=== PATIENT | female | born 1940 | race Caucasian/White ===

== ENCOUNTER 2018-09-01 17:13 | Emergency (ER) | payer OTHER ==
--- OUTSIDE RECORDS SUMMARY | 2018-09-01 17:15 | XMS REPORT ---
:1940 [facility] Address [address] [place] [address] Care Team Providers Name Role Phone LOIDA DANIELLE Unavailable Unavailable Problems This patient has no known problems. Allergies, Adverse Reactions, Alerts This patient has no known allergies or adverse reactions. Medications This patient has no known medications. Results Test Description Test Time Test Comments Text Results Atomic Results Result Comments TSH/FREE T4 IF INDICATED 2017-01-26 15:41:00 Test Item Value Reference Range Comments THYROID STIMULATING HORMONE (BEAKER) (test dxdl=172) 1.00 uIU/mL 0.35-4.94 [id number] 14:01:00 Test Item Value Reference Range Comments ACTIVATED CLOTTING TIME 125 sec TESTED AT [facility] [address] ([employer]) (test auph=498) [place] [address] [id number] 12:28:00 Test Item Value Reference Range Comments ACTIVATED CLOTTING TIME 147 sec TESTED AT [facility] [address] ([employer]) (test vteh=777) [place] [address] PLATELET AGGREGATION: FUNCTION [id number] 10:49:00 Test Item Value Reference Range Comments WEAK ADP RESULT(BEAKER) (test 5 % 60-91 khyf=7700) PLATELET FUNCTION SCREEN 0-39% indicates marked platelet INTERP (BEAKER) (test dysfunction lvyf=5946) [id number] Rhoda Gardner MD (BEAKER) (test vakv=5671) (electronic signature) PLATELET COUNT AGG (BEAKER) 269 K/CU MM 150-430 (test suzx=6397) [id number] 08:56:00 Test Item Value Reference Range Comments ACTIVATED CLOTTING TIME 307 sec TESTED AT [facility] [address] ([employer]) (test koxy=102) [place] [address] [id number] 08:56:00 Test Item Value Reference Range Comments ACTIVATED CLOTTING TIME 230 sec [address] (test oort=672) [place] [address]
--- OUTSIDE RECORDS SUMMARY | 2018-09-01 17:15 | XMS REPORT | Clinical Summary ---
:1940 Author Organization [facility] Address [address] [place] [address] Care Team Providers Name Role Phone Jose Luis Hillman Primary Care Provider Unavailable Allergies Active Allergy Reactions Severity Noted Date Comments Adhesive 01/25/2017 To Certain Tapes -- Breaks Out Diphenhydramine Hcl Other (See Comments) 01/24/2017 Opposite reaction, no IV or oral keeps patient awake. Codeine 01/24/2017 Muscle wasting Erythromycin 01/24/2017 " no feelings" or any of the mycin, facial numbness Penicillins Hives, Rash Low 01/24/2017 Swelling, breaks out Medications Medication Sig Dispensed Refills Start Date End Date Status levothyroxine Take 75 mcg by 0 Active (SYNTHROID, LEVOTHROID) mouth Every 75 MCG tablet morning on an empty stomach. lisinopril Take 10 mg by 0 Active (PRINIVIL,ZESTRIL) 10 MG mouth 2 (two) tablet times daily. anastrozole (ARIMIDEX) 1 Take 1 mg by 0 Active mg tablet mouth daily. atorvastatin (LIPITOR) Take 20 mg by 0 Active 20 MG tablet mouth nightly. clopidogrel (PLAVIX) 75 Take 75 mg by 0 Active mg tablet mouth daily. cyanocobalamin (VITAMIN Take 1,000 mcg 0 Active B-12) 1000 MCG tablet by mouth daily. folic acid (FOLVITE) 800 Take 800 mcg by 0 Active MCG tablet mouth daily . coenzyme Q10 100 mg Take 100 mg by 0 Active capsule mouth daily. garlic 1,000 mg Cap Take by mouth 0 Active daily . KRILL/OM-3/DHA/EPA/PHOSP Take 1 capsule 0 Active HO/AST (MEGARED OMEGA-3 by mouth daily KRILL OIL ORAL) 300 mg PO Daily. docusate sodium (COLACE) Take 200 mg by 0 Active 100 MG capsule mouth daily. TURMERIC ROOT EXTRACT Take 500 mg by 0 Active ORAL mouth daily. ERGOCALCIFEROL, VITAMIN Take 50,000 0 Active D2, ORAL Units by mouth once a week. LACTOBACILLUS Take by mouth 2 0 Active ACIDOPHILUS (PROBIOTIC billion daily . ORAL) aspirin 81 MG EC tablet Take 1 tablet 90 tablet 3 01/26/2017 Active (81 mg total) by mouth daily. Active Problems Problem Noted Date Carotid artery stenosis 01/25/2017 Carotid artery stenosis, symptomatic, bilateral 01/24/2017 Breast cancer 01/24/2017 Acquired hypothyroidism 01/24/2017 S/P radiation therapy 01/24/2017 Social History Tobacco Use Types Packs/Day Years Used Date Never Smoker Alcohol Use Drinks/Week oz/Week Comments No none since july Sex Assigned at Date Recorded Not on file Job Start Date Occupation Industry Not on file Not on file Not on file Travel History Travel Start Travel End No recent travel history available. 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 Device Shelf Model / Identifier Expiration Serial / Date Lot [employer] Carotid Wallstent Stents-C Right: [place] 04/25/2020 [id number] / Implanted: Qty: 1 on 01/25/2017 by Cody Walker MD oronary Carotid SCIENTIFIC / Artery [id number] Results Not on fileafter 08/31/2017 Insurance Payer Benefit Plan / Subscriber ID Type Phone Address Group AETNA - MEDICARE AETNA MEDICARE O xxxxxxxx [phone] [address] [place] [id number] Advance Directives For more information, please contact:[place] [address] [address] Pandey [phone] Code Status Date Activated Date Inactivated Comments Full Code 01/25/2017 5:59 AM 01/26/2017 1:01 PM This code status was determined by: Patient
--- OUTSIDE RECORDS SUMMARY | 2018-09-01 17:15 | XMS REPORT | Summary of Care ---
:1940 Author Name Alanna Moreno Address Unavailable Unavailable , Care Team Providers Name Role Phone JUAN MOORE M.D. 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 Quantity: 8 Refills: 0 JUAN MOORE M.D. Start : 07-Sep-2016 Active Levothyroxine Sodium 75 MCG Oral Tablet Refills: 0 DIANA N.P., NATARSHA Start : 19-May-2018 Active Lisinopril-Hydrochlorothiazide 20-12.5 MG Oral Tablet Refills: 0 DIANA N.P., NATARSHA Start : 19-May-2018 Active Plavix 75 MG Oral Tablet Refills: 0 DIANA N.P., NATARSHA Start : 19-May-2018 Active Anastrozole 1 MG Oral Tablet Refills: 0 DIANA N.P., NATARSHA Start : 19-May-2018 Active Aspir-81 81 MG Oral Tablet Delayed Release Refills: 0 DIANA N.P., NATARSHA Start : 19-May-2018 Active Lipitor 20 MG Oral Tablet Refills: 0 DIANA N.P., NATARSHA Start : 19-May-2018 Active B-12 TR 1000 MCG Oral Tablet Extended Release Refills: 0 DIANA N.P., NATARSHA Start : 19-May-2018 Active Folic Acid 800 MCG Oral Tablet Refills: 0 DIANA N.P., NATARSHA Start : 19-May-2018 Active Turmeric Curcumin Oral Capsule Refills: 0 DIANA N.P., NATARSHA Start : 19-May-2018 Active Co Q 10 100 MG Oral Capsule Refills: 0 DIANA N.P., NATARSHA Start : 19-May-2018 Active Allergies and Adverse Reactions Name Dates Details codeine (Allergy) Status: Active Penicillins (Allergy) Status: Active tramadol (Allergy) Status: Active Past Medical History Name Dates Details History of hyperlipidemia (V12.29, Z86.39) Status: Resolved History of hypertension (V12.59, Z86.79) Status: Resolved History of hypothyroidism (V12.29, Z86.39) Status: Resolved Procedures Procedure Dates Details [U] XRAY FEMUR 2 VWS LEFT [id number] Date: 01-Sep-2018 History of Tonsillectomy Completed History of Cataract Surgery Completed Immunization Name Dates Details Immunizations not documented Family History Name Dates Details Family history of thyroid disease (V18.19, Z83.49) Comments: Family History Status: Active Social History Name Dates Details - Status: Name Dates Details Never smoker Vital Signs Date Test Result Details No Known Vitals to report Results Date Description Value Details Results not documented Plan of Care Name Dates Details Planned Observations Planned Goals not documented Planned Encounters Appointment; JUAN MOORE M.D. On: 12-Sep-2018 9:00 Interventions Provided Labs/Procedures/Imaging[U] XRAY FEMUR 2 VWS LEFT [id number]; To Be Done: 12 Sep 2018 Instructions Name Dates Details Instructions not documented Encounters Appointment; JUAN MOORE M.D. On: 07-Sep-2016 10:00 Encounter Diagnosis: Problem not documented Appointment; JUAN MOORE M.D. On: 09-Nov-2016 9:45 Encounter Diagnosis: Problem not documented Appointment; JUAN MOORE M.D. On: 08-Feb-2017 9:45 Encounter Diagnosis: Problem not documented Appointment; SHAHANA WILL P.A. On: 08-Feb-2017 9:45 Encounter Diagnosis: Problem not documented Appointment; JUAN MOORE M.D. On: 09-Aug-2017 9:00 Encounter Diagnosis: Problem not documented Appointment; JUAN MOORE M.D. On: 13-Sep-2017 9:00 Encounter Diagnosis: Problem not documented Appointment; Bhavana Singleton M.D. On: 10-May-2018 13:30 Encounter Diagnosis: Problem not documented Appointment; RADIOLOGY, PROVIDER On: 19-May-2018 9:00 Encounter Diagnosis: Problem not documented Appointment; JUAN MOORE M.D. On: 12-Sep-2018 9:00 Encounter Diagnosis: Problem not documented
[2018-09-01] MEDS ORDERED: cloNIDine HCl 0.1 MG TAB ONE (18:36)
[2018-09-01 18:49] LABS: Absolute Lymphocytes (CBC) 1.5 K/uL (0.7-4.9); Absolute Monocytes 0.6 K/uL (0.1-1.3); Absolute Neutrophil 5.2 K/uL (1.8-8.0); Basophils % 1.2 % (0-1.3); Eosinophils % 5.1 % (0-4.4); Hematocrit 27.1 % (36.0-45.0); Lymphocytes % 19.2 % (15.3-44.8); MPV 6.4 fL (7.6-11.3); Monocytes % 8.2 % (3.3-12.3); RBC Red Blood Cell Count 2.76 M/uL (3.86-4.86)
[2018-09-01 19:09] LABS: Potassium 4.2 mmol/L (3.5-5.1)
--- NOTE | 2018-09-01 19:52 | EDPHYS ---
Physician Documentation [facility] Name: Natacha Dhillon Age: 77 yrs Sex: Female : 1940 Arrival Date: 09/01/2018 Time: 17:17 Bed 25 Private MD: out of town, doctor ED Physician Dakota Trevino HPI: 09/01 18:05 This 77 yrs old Female presents to ER via Ambulatory with complaints of High kdr Blood Pressure. 18:05 The patient has elevated blood pressure and discovered this at home, with a home kdr device. Onset: The symptoms/episode began/occurred today. Modifying factors: The symptoms are aggravated by Nothing, The symptoms are alleviated by Nothing. Associated signs and symptoms: The patient has no apparent associated signs or symptoms. Severity of symptoms: At its worst the blood pressure was severe, just prior to arrival, 210 mm Hg, in the emergency department the blood pressure is improved, 184 mm Hg. The patient has experienced similar episodes in the past, a few times. The patient has not recently seen a physician. Historical: - Allergies: 17:25 Codeine; aj1 17:25 PENICILLINS; aj1 17:25 Erythromycin; aj1 17:25 tramadol; aj1 - Home Meds: 17:25 levothyroxine 75 mcg tab 1 tab once daily [Active]; Lipitor 20 mg Oral tab 1 tab once aj1 daily [Active]; Plavix 75 mg Oral tab 1 tab once daily [Active]; Vitamin B-12 1,000 mcg Oral TbER daily [Active]; folic acid 800 mcg Oral tab 1 tab once daily [Active]; tumeric daily [Active]; ergocalciferol (vitamin D2) 50,000 unit Oral cap 1 cap once wkly [Active]; - PMHx: 17:25 Hypothyroidism; Hyperlipidemia; Hypertension; stent in right carotid; 75% blockage of aj1 left carotid; - Immunization history:: Flu vaccine is up to date. - Social history:: Smoking status: Patient/guardian denies using tobacco. - Ebola Screening: : Patient denies travel to an Ebola-affected area in the 21 days before illness onset. ROS: 18:05 Constitutional: Negative for fever, chills, and weight loss, Eyes: Negative for injury, kdr pain, redness, and discharge, ENT: Negative for injury, pain, and discharge, Neck: Negative for injury, pain, and swelling, Cardiovascular: Negative for chest pain, palpitations, and edema, Respiratory: Negative for shortness of breath, cough, wheezing, and pleuritic chest pain, Abdomen/GI: Negative for abdominal pain, nausea, vomiting, diarrhea, and constipation, Back: Negative for injury and pain, : Negative for injury, bleeding, discharge, and swelling, MS/Extremity: Negative for injury and deformity, Skin: Negative for injury, rash, and discoloration, Neuro: Negative for headache, weakness, numbness, tingling, and seizure activity. Psych: Negative for depression, anxiety, suicide ideation, homicidal ideation, and hallucinations, Allergy/Immunology: Negative for hives, rash, and allergies, Endocrine: Negative for neck swelling, polydipsia, polyuria, polyphagia, and marked weight changes, Hematologic/Lymphatic: Negative for swollen nodes, abnormal bleeding, and unusual bruising. Exam: 18:05 Constitutional: This is a well developed, well nourished patient who is awake, alert, kdr and in no acute distress. Head/Face: Normocephalic, atraumatic. Eyes: Pupils equal round and reactive to light, extra-ocular motions intact. Lids and lashes normal. Conjunctiva and sclera are non-icteric and not injected. Cornea within normal limits. Periorbital areas with no swelling, redness, or edema. Neck: Trachea midline, no thyromegaly or masses palpated, and no cervical lymphadenopathy. Supple, full range of motion without nuchal rigidity, or vertebral point tenderness. No Meningismus. Chest/axilla: Normal chest wall appearance and motion. Nontender with no deformity. No lesions are appreciated. Cardiovascular: Regular rate and rhythm with a normal S1 and S2. No gallops, murmurs, or rubs. Normal PMI, no JVD. No pulse deficits. Respiratory: Lungs have equal breath sounds bilaterally, clear to auscultation and percussion. No rales, rhonchi or wheezes noted. No increased work of breathing, no retractions or nasal flaring. Abdomen/GI: Soft, non-tender, with normal bowel sounds. No distension or tympany. No guarding or rebound. No evidence of tenderness throughout. Back: No spinal tenderness. No costovertebral tenderness. Full range of motion. Skin: Warm, dry with normal turgor. Normal color with no rashes, no lesions, and no evidence of cellulitis. MS/ Extremity: Pulses equal, no cyanosis. Neurovascular intact. Full, normal range of motion. Neuro: Awake and alert, GCS 15, oriented to person, place, time, and situation. Cranial nerves II-XII grossly intact. Motor strength 5/5 in all extremities. Sensory grossly intact. Cerebellar exam normal. Normal gait. Psych: Awake, alert, with orientation to person, place and time. Behavior, mood, and affect are within normal limits. Vital Signs: 17:25 BP 174 / 73; Pulse 84; Resp 20; Temp 98.6(TE); Pulse Ox 100% on R/A; Weight 78.93 kg aj1 (R); Height 5 ft. 5 in. (165.10 cm) (R); Pain 0/10; 18:00 BP 152 / 65; Pulse 73; Resp 18; Pulse Ox 95% on R/A; tl3 19:56 BP 141 / 74; Pulse 75; Resp 18; Pulse Ox 97% ; tl3 17:25 Body Mass Index 28.95 (78.93 kg, 165.10 cm) aj1 MDM: 18:05 Data reviewed: vital signs, nurses notes. kdr 19:00 Patient medically screened. [facility] 19:49 Data reviewed: lab test result(s). Counseling: I had a detailed discussion with the [facility] patient and/or guardian regarding: the historical points, exam findings, and any diagnostic results supporting the discharge/admit diagnosis, lab results, the need for outpatient follow up, to return to the emergency department if symptoms worsen or persist or if there are any questions or concerns that arise at home. ED course: Patient denies headache, weakness, chest pain, difficulty with urination. Labs are unremarkable. Patient given return precautions and is otherwise advised to follow up with PCP on Tuesday. Patient understood and agrees with the plan of care. . 09/01 18:03 Order name: CBC with Diff; Complete Time: 19:03 kdr 09/01 18:03 Order name: Chem 7; Complete Time: 19:24 kdr Administered Medications: 18:30 Drug: cloNIDine 0.1 mg Route: PO; tl3 19:34 Follow up: Response: Blood pressure is lowered tl3 Disposition: 09/01/18 19:50 Discharged to Home. Impression: Elevated Blood Pressure. - Condition is Stable. - Discharge Instructions: Hypertension. - Medication Reconciliation Form, Thank You Letter, Antibiotic Education, Prescription Opioid Use form. - Follow up: Private Physician; When: 2 - 3 days; Reason: Recheck today's complaints, Continuance of care, Re-evaluation by your physician. Addendum: 09/04/2018 07:06 Co-signature as Attending Physician, Dakota Trevino MD I agree with the assessment and k dr plan of care. Signatures: Dispatcher [employer] EDMichelle Le, RN RN aj1 Dakota Trevino MD MD [facility] Donnie Braun PA PA jmm Lowrey, Tammy, RN RN tl3 Corrections: (The following items were deleted from the chart) 09/01 20:05 19:50 09/01/2018 19:50 Discharged to Home. Impression: Elevated Blood Pressure. tl3 Condition is Stable. Forms are Medication Reconciliation Form, Thank You Letter, Antibiotic Education, Prescription Opioid Use. Follow up: Private Physician; When: 2 - 3 days; Reason: Recheck today's complaints, Continuance of care, Re-evaluation by your physician. francis
--- NOTE | 2018-09-01 19:52 | ER ---
Nurse's Notes [facility] Name: Natacha Dhillon Age: 77 yrs Sex: Female : 1940 Arrival Date: 09/01/2018 Time: 17:17 Bed 25 Private MD: out of town, doctor Diagnosis: Elevated Blood Pressure Presentation: 09/01 17:19 Presenting complaint: Patient states: Her physical therapist came by today and told her aj1 that her blood pressure was too high to do physical therapy. She rested 10 minutes and they rechecked it but it was still elevated. They spoke to the home health nurse but she wasn't able to get a hold of the doctor so she told her to come to the ER. Transition of care: patient was not received from another setting of care. Onset of symptoms was September 01, 2018. Risk Assessment: Do you want to hurt yourself or someone else? Patient reports no desire to harm self or others. Initial Sepsis Screen: Does the patient meet any 2 criteria? No. Patient's initial sepsis screen is negative. Does the patient have a suspected source of infection? No. Patient's initial sepsis screen is negative. Care prior to arrival: None. 17:19 Method Of Arrival: Ambulatory aj1 17:19 Acuity: LES 3 aj1 Triage Assessment: 17:25 General: Appears in no apparent distress. comfortable, Behavior is calm, cooperative, aj1 appropriate for age. Pain: Denies pain. Neuro: Level of Consciousness is awake, alert, obeys commands. Cardiovascular: Patient's skin is warm and dry. Respiratory: Airway is patent Respiratory effort is even, unlabored, Respiratory pattern is regular, symmetrical. Historical: - Allergies: 17:25 Codeine; aj1 17:25 PENICILLINS; aj1 17:25 Erythromycin; aj1 17:25 tramadol; aj1 - Home Meds: 17:25 levothyroxine 75 mcg tab 1 tab once daily [Active]; Lipitor 20 mg Oral tab 1 tab once aj1 daily [Active]; Plavix 75 mg Oral tab 1 tab once daily [Active]; Vitamin B-12 1,000 mcg Oral TbER daily [Active]; folic acid 800 mcg Oral tab 1 tab once daily [Active]; tumeric daily [Active]; ergocalciferol (vitamin D2) 50,000 unit Oral cap 1 cap once wkly [Active]; - PMHx: 17:25 Hypothyroidism; Hyperlipidemia; Hypertension; stent in right carotid; 75% blockage of aj1 left carotid; - Immunization history:: Flu vaccine is up to date. - Social history:: Smoking status: Patient/guardian denies using tobacco. - Ebola Screening: : Patient denies travel to an Ebola-affected area in the 21 days before illness onset. Screenin:56 Abuse screen: Denies threats or abuse. Nutritional screening: On. Nutritional tl3 screening: No deficits noted. Tuberculosis screening: No symptoms or risk factors identified. Fall Risk Ambulatory Aid- Crutches/Cane/Walker (15 pts). Assessment: 18:00 General: Appears in no apparent distress. comfortable, well groomed, well developed, tl3 well nourished, Behavior is calm, cooperative, appropriate for age. Pain: Denies pain. Neuro: Level of Consciousness is awake, alert, obeys commands, Oriented to person, place, time, situation, Appropriate for age. Cardiovascular: Heart tones S1 S2 present Patient's skin is warm and dry. Cardiovascular: Reports since elevated blood pressure today. Respiratory: Airway is patent Respiratory effort is even, unlabored, Respiratory pattern is regular, symmetrical, Breath sounds are clear bilaterally. GI: No signs and/or symptoms were reported involving the gastrointestinal system. : No signs and/or symptoms were reported regarding the genitourinary system. EENT: No signs and/or symptoms were reported regarding the EENT system. Derm: No signs and/or symptoms reported regarding the dermatologic system. Musculoskeletal: No signs and/or symptoms reported regarding the musculoskeletal system. 19:56 Reassessment: Patient appears in no apparent distress at this time. No changes from tl3 previously documented assessment. Patient and/or family updated on plan of care and expected duration. Pain level reassessed. Patient is alert, oriented x 3, equal unlabored respirations, skin warm/dry/pink. pt being discharged, states that she id feeling better. Vital Signs: 17:25 BP 174 / 73; Pulse 84; Resp 20; Temp 98.6(TE); Pulse Ox 100% on R/A; Weight 78.93 kg aj1 (R); Height 5 ft. 5 in. (165.10 cm) (R); Pain 0/10; 18:00 BP 152 / 65; Pulse 73; Resp 18; Pulse Ox 95% on R/A; tl3 19:56 BP 141 / 74; Pulse 75; Resp 18; Pulse Ox 97% ; tl3 17:25 Body Mass Index 28.95 (78.93 kg, 165.10 cm) aj1 ED Course: 17:17 Patient arrived in ED. mr 17:17 out of town, doctor is Private Physician. mr 17:18 Daktoa Trevino MD is Attending Physician. kdr 17:20 Triage completed. aj1 17:25 Arm band placed on. aj1 17:42 Chantelle Gauthier, RN is Primary Nurse. tl3 18:59 Donnie Braun PA is PHCP. jmm 19:56 Patient has correct armband on for positive identification. Bed in low position. Side tl3 rails up X 1. Pulse ox on. NIBP on. Administered Medications: 18:30 Drug: cloNIDine 0.1 mg Route: PO; tl3 19:34 Follow up: Response: Blood pressure is lowered tl3 Outcome: 19:50 Discharge ordered by . [facility] 20:05 Patient left the ED. tl3 Signatures: Michelle Donato, RN RN aj1 Dakota Trevino MD MD [facility] Donnie Braun PA PA [facility] Sally Hernandez mr Chantelle Gauthier, RN RN tl3
== END 2018-09-01 20:05 | disposition home or self-care (01) ==
LOC: ER 17:13
DX: I10 Essential (primary) hypertension (principal); E03.9 Hypothyroidism, unspecified; E78.5 Hyperlipidemia, unspecified; Z88.1 Allergy status to other antibiotic agents; Z88.5 Allergy status to narcotic agent; Z88.0 Allergy status to penicillin
CPT/HCPCS: 36415; 80048; 85025; 99283

== ENCOUNTER 2021-01-21 09:03 | Emergency (ER) | payer OTHER ==
--- OUTSIDE RECORDS SUMMARY | 2021-01-21 09:07 | XMS REPORT | Continuity of Care Document ---
:1940 Author Organization [facility] t Address [address] [place] [address] Care Team Providers Name Role Phone Ilya Hillman Primary Care Physician RADIOLOGY Attending Clinician Unavailable Mani Attending Clinician Unavailable Ilya Hillman MD Attending Clinician TERESA Attending Clinician Unavailable NICOLETTE Attending Clinician Unavailable REGINA DANIELLE Attending Clinician Unavailable REGINA DANIELLE Admitting Clinician Unavailable Problems Condition Condition Condition Status Onset Resolution Last Treating Co mments Source Name Details Category Date Date Treatment Clinician Date Carotid Carotid Disease Active [facility] St artery artery 01-25 [facility] - stenosis stenosis 00:00: Medica l 00 [place] Carotid Carotid Disease Active [facility] St artery artery 01-24 [facility] - stenosis, stenosis, 00:00: Medi charan symptomati symptomati 00 Ce nter c, c, bilateral bilateral Breast Breast Disease Active [facility] cancer cancer 01-24 [facility] - 00:00: Medical 00 [place] Acquired Acquired Disease [facility] hypothyroi hypothyroi 01-24 Iliana kes - dism dism 00:00: Medical 00 [place] S/P S/P Disease Active [facility] radiation radiation 01-24 [facility] - therapy therapy 00:00: Medical 00 Center History of History of Problem Resolve Univers hypothyroi hypothyroi d it y of dism dism [place] [facility] History of History of Problem Resolve Univers hypertensi hypertensi d it y of on on [place] [facility] Pathologic Pathologic Problem Active U nivers fracture fracture ity of of femur of femur [place] [facility] Breast Breast Problem Active [facility] cancer cancer ity of metast[place] to Physici liver liver ans Allergies, Adverse Reactions, Alerts Allergy Allergy Status Severity Reaction(s) Onset Inactive Treating Comm ents Source Name Type Date Date Clinician Adhesive Drug Active To [facility] Allergy 01-25 Certain [facility] - 00:00: Tapes -- Medical 00 Breaks Center Out Diphenhy Propensi Active Other (See Opposite [facility] dramine ty to Comments) 01-24 reaction, Porsha es - Hcl adverse 00:00: no IV or Medical reaction 00 oral Center s keeps patient awake. Codeine Propensi Active Muscle [facility] ty to 01-24 wasting [facility] - adverse 00:00: Medical reaction 00 Center s Erythrom Propensi Active " no [facility] ycin ty to 01-24 feelings" [facility] - adverse 00:00: or any of Medica l reaction 00 the Center s mycin, facial numbness Penicill Drug Active Hives, Rash Swelling, [facility] ins Allergy 01-24 breaks [facility] - 00:00: out Medical 00 Center Penicill Allergy Active Univers ins to drug ity of (finding [place] ) Physici ans codeine Allergy Active Univers to drug ity of (finding [place] ) Physici ans tramadol Allergy Active Univers to drug ity of (finding [place] ) Physici ans Family History Family Member Diagnosis Comments Start Date Stop Date Source Unknown Family Family history of Family History [facility] thyroid disease [place] Phy sicians Social History Social Habit Start Date Stop Date Quantity Comments Source Sex Assigned At [facility] Alcohol intake 2017-01-26 2017-01-26 Current [facility] es - 00:00:00 00:00:00 non-drinker of Medical Ce nter alcohol (finding) Alcohol Comment 2017-01-24 2017-01-24 none since [facility] - 00:00:00 00:00:00 [facility] Smoking Status Start Date Stop Date Source Never smoker [facility] Medications Ordered Filled Start Stop Current Ordering Indication Dosage Frequency Signature Comments Components Source Medication Medication Date Date Medication? 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 ity of Tablet Tablet 00:00: [place] 00 Physici ans Aspirin 81 Aspirin 81 2017-08 Yes NATARSHA Univers 81 MG Oral 81 MG Oral 0-19 DIANA AZEVEDON ity of Tablet Tablet 00:00: [place] Delayed Delayed 00 Physici Release Release ans Lipitor 20 Lipitor 20 2017-08 Yes NATARSHA Univers MG Oral MG Oral 0-19 DIANA AZEVEDON ity of Tablet Tablet 00:00: [place] 00 Physici ans B-12 TR B-12 TR 2017-08 Yes NATARSHA Uni vers 1000 MCG 1000 MCG 0-19 DIANA AZEVEDON i ty of Oral Tablet Oral Tablet 00:00: [place] Extended Extended 00 Physici Release Release ans Folic Acid Folic Acid 2017-08 Yes NATARSHA Univers 800 MCG 800 MCG 0-19 DIANA AZEVEDON ity of Oral Tablet Oral Tablet 00:00: [place] 00 Physici ans Turmeric Turmeric 2017-08 Yes NATNELLIHA U nivers Curcumin Curcumin 0-19 DIANA AZEVEDON i ty of Oral Oral 00:00: [place] Capsule Capsule 00 Physici ans Co Q 10 100 Co Q 10 100 2017-08 Yes NATARSHA Univers MG Oral MG Oral 0-19 DIANA AZEVEDON ity of Capsule Capsule 00:00: [place] 00 Physici ans Anastrozole Anastrozole 2017-08 Yes NATARSHA Univers 1 MG Oral 1 MG Oral 0-19 DIANA AZEVEDON ity of Tablet Tablet 00:00: [place] 00 Physici ans levothyroxi Yes 75ug Take [address] ne 6-28 mcg by Melody - (SYNTHROID, 11:00: mouth Medic al LEVOTHROID) 35 Every Center 75 MCG morning on tablet an empty stomach. lisinopril Yes 10mg Q.5D Take [address] (PRINIVIL,Z 6-28 by mouth 2 [facility]iana kes - ESTRIL) 10 11:00: (two) Medica l MG tablet 35 times Center daily. anastrozole Yes 1mg QD Take [address] (ARIMIDEX) 6-28 by mouth [facility] - 1 mg tablet 11:00: daily. Medi charan 35 [place] atorvastati Yes 20mg QD Take [address] n (LIPITOR) 6-28 by mouth Luke [facility] - 20 MG 11:00: nightly. Medical tablet 35 [place] clopidogrel Yes 75mg QD Take [address] (PLAVIX) 75 6-28 by mouth Luke s - mg tablet 11:00: daily. Medica l 35 [place] cyanocobala Yes 1000ug QD Take 1,[address] min 6-28 mcg by [facility] - (VITAMIN 11:00: mouth Medical B-12) 1000 35 daily. [place] MCG tablet folic acid Yes 800ug QD Take [address] (FOLVITE) 6-28 mcg by [facility] - 800 MCG 11:00: mouth Medical tablet 35 daily . [place] coenzyme Yes 100mg QD Take [address] Q10 100 mg 6-28 mg by [facility] - capsule 11:00: mouth Medical 35 daily. [place] garlic Yes QD Take by [facility] 1,000 mg 6-28 mouth [facility] - Cap 11:00: daily . Medical 35 [place] KRILL/OM-3/ Yes 1{capsu QD Take [address] DHA/EPA/MELISSA 6-28 le} capsule by Iliana kes - SPHO/AST 11:00: mouth Medical (MEGARED 35 daily 300 [place] OMEGA-3 mg PO KRILL OIL Daily. ORAL) docusate Yes 200mg QD Take [address] sodium 6-28 mg by [facility] - (COLACE) 11:00: mouth Medical 100 MG 35 daily. [place] capsule TURMERIC Yes 500mg QD Take [address] ROOT 6-28 mg by [facility] - EXTRACT 11:00: mouth Medical ORAL 35 daily. [place] ERGOCALCIFE Yes [id number] Q7D Take [facility] ROL, 6-28 50,000 [facility] - VITAMIN D2, 11:00: Units by [place] dical ORAL 35 mouth once Center a week. LACTOBACILL Yes Take by [facility] US 6-28 mouth 2 [facility] - ACIDOPHILUS 11:00: billion Med ical (PROBIOTIC 35 daily . Center ORAL) aspirin 81 Yes 81mg QD Take 1 [facility] MG EC 6-28 tablet (81 [facility] - tablet 00:00: mg total) Medica l 00 by mouth Center daily. Ergocalcife Ergocalcife Yes JUAN MOORE TAKE 1 Univers rol 1.25 MG rol 1.25 MG 2-07 M.D. CAPSULE ity of (71200 UT) (25977 UT) 00:00: WEEKLY. [place] Oral Oral 00 Physici Capsule Capsule ans Vital Signs Vital Name Observation Time Observation Value Comments Source Height 2018-05-19 12:25:00 65 [in_us] [facility] Physicians Weight 2018-05-19 12:25:00 183 [lb_av] [facility] Body Mass Index 2018-05-19 12:25:00 30.45 kg/m2 [facility] Calculated Physicians Procedures Procedure Date / Time Performing Clinician Source Performed VR 2020-12-05 00:00:00 [place] [facility] Vascular/Interventional Physicia ns Radiology Consult [U] XRAY FEMUR 2 [facility] 2019-08-02 00:00:00 [facility] LEFT [id number] Physicians [U] XRAY FEMUR 2 [facility] 2019-07-03 00:00:00 [facility] ity [facility] LEFT [id number] Physicians [U] XRAY FEMUR 2 [facility] 2018-09-01 00:00:00 [facility] ity [facility] LEFT [id number] Physicians [U] XRAY FEMUR 2 [facility] 2017-09-02 00:00:00 [facility] ity [facility] LEFT [id number] Physicians [U] XRAY FEMUR 2 [facility] 2017-08-03 00:00:00 [facility] LEFT [id number] Physicians History of Tonsillectomy [facility] Physicians History of Cataract [place] [facility] Surgery Physicians Plan of Care Planned Activity Planned Date Details Comments Source Future Scheduled VR After [id number] [facility] Test Vascular/Intervent Physician s ional Radiology Consult [code = VR Vascular/Intervent ional Radiology Consult] Future Scheduled VR After [id number] [facility] Test Vascular/Intervent Physician s ional Radiology Consult [code = VR Vascular/Intervent ional Radiology Consult] Encounters Start End Encounter Admission Attending Care Care Encounter Source Date/Time Date/Time Type Type Clinicians Facility Department ID 2020-12-04 2020-12-04 ZO Stephen [facility] [id number] Univers 10:30:00 10:30:00 t; MD MARLO mart of RADIOLOGY, Radiology - Rico chapman MD [facility] 2020-12-01 2020-12-01 Outpatient [facility] [id number] [facility] 07:21:00 07:21:00 2020-10-23 2020-10-23 ZO Hicks [facility] [id number] [facility] 16:30:00 16:30:00 t; Khadar Bateman M.D. [place] iPper Bateman M.D. ans 2020-10-10 2020-10-10 ZO Hicks [facility] [id number] Univers 11:30:00 11:30:00 t; Khadar Bateman M.D. [place] Piper Bateman M.D. [facility] 2020-10-10 2020-10-10 Outpatient [facility] [id number] [facility] 10:49:00 10:49:00 2020-01-23 2020-01-23 Office KELVIN Hillman [id number] 09:28:26 16:23:09 Visit Jose Luis Caraballo AMBULATOR [id number] 2019-08-07 2019-08-07 JUAN Johnson [facility] Orthopedics [id number] Univers 14:00:00 14:00:00 t; Chey MOORE Trauma jose david MARTINEZ M.D. [facility] 2019-07-10 2019-07-10 JUAN Johnson [facility] Orthopedics [id number] Univers 10:00:00 10:00:00 t; Chey MOORE Trauma jose david MARTINEZ M.D. [facility] 2018-09-12 2018-09-12 AppointJUAN Mcmahan [facility] [id number] Univers 09:00:00 09:00:00 t; Chey MOORE M.D. [place] Physici ans 2018-05-19 2018-05-19 Appointzafar RADIOLOGY, [facility] Interventio [id number] Univers 09:00:00 09:00:00 t; MD MARLO mart of RADIOLOGY, Radiology [place] Physici PROVIDER [facility] 2018-05-10 2018-05-10 Appointzafar Singleton [facility] [id number] Univers 13:30:00 13:30:00 t; Khadar Bateman M.D. [place] Piper Bateman M.D. [facility] 2017-09-13 2017-09-13 JUAN Johnson [facility] [id number] Univers 09:00:00 09:00:00 t; Chey MOORE M.D. [place] Physici ans 2017-08-09 2017-08-09 JUAN Johnson [facility] [id number] Univers 09:00:00 09:00:00 t; Chey MOORE M.D. [place] Physici ans 2017-02-08 2017-02-08 Karon WILL [facility] [id number] Univers 09:45:00 09:45:00 t; SHAHANA WILL P.A. ity [facility].AMaritza Physici ans 2017-02-08 2017-02-08 AppointJUAN Mcmahan [facility] [id number] Univers 09:45:00 09:45:00 t; Chey MOORE M.D. [place] Physici ans 2016-11-09 2016-11-09 JUAN Johnson [facility] [id number] Univers 09:45:00 09:45:00 t; Chey MOORE M.D. [place] Physici ans 2016-09-07 2016-09-07 JUAN Johnson [facility] [id number] Univers 10:00:00 10:00:00 t; MUNChey Garcia M.D. [place] Phys[facility] ans 2016-08-17 2016-08-17 Appointmen NICOLETTE [facility] [id number] Univers 10:00:00 10:00:00 t; SHAHANA WILL P.A. ity of [place], [place] P.A. Physici ans Results Test Description Test Time Test Comments Results Result Comments Source TSH/FREE T4 IF INDICATED 2017-01-26 15:41:00 Test Item Value Reference Range Interpretation Comme nts THYROID STIMULATING HORMONE ([facility]) (test code = 772) 1.00 uIU/mL 0.35-4.94 [id number] 14:01:00 Test Item Value Reference Range Interpretation Comments ACTIVATED CLOTTING TIME 125 sec TEST ED AT [place] [address] ([facility]) (test code = DONNA Mcfarlane [facility] 441) [id number] 12:28:00 Test Item Value Reference Range Interpretation Comments ACTIVATED CLOTTING TIME 147 sec TEST ED AT [place] [address] ([facility]) (test code = DON[place] 441) [id number] PLATELET AGGREGATION: FUNCTION [id number] 10:49:00 Test Item Value Reference Range Interpretation Comments WEAK ADP 5 % 60-91 L RESULT([facility]) (test code = 2135) PLATELET FUNCTION 0-39% indicates marked SCREEN INTERP platelet dysfunction ([facility]) (test code = 2173) [id number] Rhoda Gardner MD ([facility]) (test code = (electronic signature) 2622) PLATELET COUNT AGG 269 K/CU MM 150-430 ([facility]) (test code = 2656) [id number] 08:56:00 Test Item Value Reference Range Interpretation Comments ACTIVATED CLOTTING TIME 307 sec TEST ED AT [place] [address] ([facility]) (test code = DON[place] 441) [id number] 08:56:00 Test Item Value Reference Range Interpretation Comments ACTIVATED CLOTTING TIME 230 sec TEST ED AT [place] [address] ([facility]) (test code = DON[place] Mcfarl[place] 441) [id number]
[2021-01-21 10:09] LABS: Absolute Lymphocytes (CBC) 0.5 K/uL (0.7-4.9); Hematocrit 35.5 % (36.0-45.0); Lymphocytes % 5.1 % (15.3-44.8); MPV 8.5 fL (7.6-11.3); RBC Red Blood Cell Count 3.73 M/uL (3.86-4.86)
[2021-01-21 10:10] LABS: Protime INR 1.05
[2021-01-21 10:35] LABS: ALT/SGPT 83 U/L (12-78); AST/SGOT 177 U/L (15-37); Albumin 3.1 g/dL (3.4-5.0); Alkaline Phosphatase 186 U/L (45-117); BUN Blood Urea Nitrogen 14 mg/dL (7-18); Bicarbonate 26 mmol/L (21-32); Bilirubin Direct 0.4 mg/dL (0-0.2); Creatine Phosphokinase 322 U/L (26-192); Glucose Level 104 mg/dL (74-106); Magnesium 2.1 mg/dL (1.8-2.4); NT PRO-BNP 2836 pg/mL (<450); Potassium 3.8 mmol/L (3.5-5.1); Protein, Total 6.9 g/dL (6.4-8.2); Sodium Level 137 mmol/L (136-145); Troponin (Emerg Dept Use Only) < 0.02 ng/mL (0.0-0.045)
[2021-01-21 10:44] LABS: Blood Morphology Comment NOT SEEN (NOT SEEN); Platelet Estimate ADEQ
--- NOTE | 2021-01-21 10:45 | RAD REPORT ---
EXAM DESCRIPTION: RAD - Chest Single View - 01/21/2021 9:41 am CLINICAL HISTORY: general weakness Chest pain. COMPARISON: Chest Single View dated 09/30/2016 FINDINGS: Portable technique limits examination quality. Mild linear subsegmental atelectasis is present left lung base. Trace left pleural effusion suspected . Small calcified granuloma is present in the left apex. The heart is normal in size. No displaced ri b fracture evident.
[2021-01-21] MEDS ORDERED: ONDANSETRON 4 MG/2 ML VIAL ONE (10:49)
--- NOTE | 2021-01-21 12:58 | RAD REPORT ---
EXAM DESCRIPTION: CT - Head C Spine Cap Jacquie Covarrubias - 01/21/2021 12:16 pm CLINICAL HISTORY: Trauma, head and neck injury. Chest, abdomen and pelvis pain. right side rib pain from fall COMPARISON: No comparisons TECHNIQUE: CT head without contrast. CT cervical spine without contrast with coronal and sagittal reformatted images. CT chest, abdomen and pelvis with IV contrast (approximately 100 mL nonionic IV contrast) with albright l and sagittal reformatted images of the spine. All CT scans are performed using dose optimization technique as appropriate and may include automated exposure control or mA/KV adjustment according to patient size. FINDINGS: CT HEAD WITHOUT CONTRAST: No intracranial hemorrhage, hydrocephalus or extra-axial fluid collection. Moderate generalized brain atrophy. No areas of brain edema or midline shift. The paranasal sinuses and mastoids are clear. The calvarium is intact. CT CERVICAL SPINE WITHOUT CONTRAST: No fracture or subluxation. Qdet-ht-fcrejkak C5-6 and C6-7 degenerative spondylosis. The prevertebral soft tissues are normal in thickness.A right carotid stent is in place. CT CHEST, ABDOMEN, PELVIS WITH CONTRAST: 19 mm mass in the left breast is again seen, unchanged.Several small pulmonary nodules seen likely me tastatic. Nodular lesion in the medial left lung base is also unchanged measuring [address] eural effusion. Extensive liver metastasis again noted. No acute trauma related abnormality in the abdomen or pelvis. Moderate stool is retained in the colon particularly in the rectum. Bony metastatic disease again seen, unchanged. No acute fracture is evident. IMPRESSION: No acute trauma related abnormality is identified.
[2021-01-21 15:45] LABS: Urine Blood Trace-intact (Negative); Urine Glucose Negative (Negative); Urine Protein 1+ (Negative)
--- NOTE | 2021-01-21 15:56 | EDPHYS ---
Physician Documentation [facility] Name: Natacha Dhillon Age: 80 yrs Sex: Female : 1940 Arrival Date: 01/21/2021 Time: 09:04 Bed 17 Private MD: ED Physician Domenico Lloyd HPI: 01/21 09:30 This 80 yrs old Female presents to ER via EMS with complaints of weakness. cp 09:30 The patient's problem is reported as weakness, that is generalized. Onset: The cp symptoms/episode began/occurred gradually. 09:30 Associated signs and symptoms: Pertinent positives: back pain, Pertinent negatives: cp abdominal pain, chest pain, confusion, diarrhea, headache, palpitations, shortness of breath, vomiting. Patient's baseline: Neuro: alert and fully oriented, Motor: no deficits, Ambulation: walks with assist only, uses walker, Speech: normal. Patient reports history of stage 4 breast CA. Recently started IV chemo this past week with first treatment at local cancer center. Patient reports after returning from bathroom this morning, sat on bed and slid to floor where she lay until this morning unable to get up until assisted by EMS called by son. 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 - Social history:: Smoking status: Patient denies any tobacco usage or history of. ROS: 09:35 Neuro: Positive for weakness, Negative for altered mental status, dizziness, headache, cp loss of consciousness, syncope. 09:35 Eyes: Negative for injury, pain, redness, and discharge. cp 09:35 Constitutional: Negative for body aches, chills, fever, poor PO intake. 09:35 ENT: Negative for ear pain, sore throat, difficulty swallowing, difficulty handling secretions. 09:35 Neck: Negative for pain with movement, pain at rest, stiffness. 09:35 Cardiovascular: Negative for chest pain, edema, palpitations. 09:35 Respiratory: Negative for cough, shortness of breath, wheezing. 09:35 Abdomen/GI: Negative for abdominal pain, nausea, vomiting, and diarrhea, constipation, anorexia, black/tarry stool, rectal bleeding. 09:35 Back: Positive for pain with movement, of the thoracic area and lumbar area. 09:35 All other systems are negative. Exam: 09:45 Constitutional: The patient appears in no acute distress, alert, awake, cp non-diaphoretic, non-toxic, well developed, well nourished. 09:45 Head/Face: Normocephalic, atraumatic. cp 09:45 Eyes: Pupils: equal, round, and reactive to light and accomodation, Extraocular movements: intact throughout, Conjunctiva: normal, no exudate, no injection, Sclera: no appreciated abnormality, Lids and lashes: appear normal, bilaterally. 09:45 ENT: External ear(s): are unremarkable, Nose: is normal, Mouth: Lips: dry, Oral mucosa: moist, Posterior pharynx: Airway: no evidence of obstruction, patent. 09:45 Neck: C-spine: vertebral tenderness, is not appreciated, crepitus, is not appreciated, ROM/movement: is normal, is supple, without pain, no range of motions limitations. 09:45 Chest/axilla: Inspection: normal, Palpation: is normal, no crepitus, no tenderness. 09:45 Cardiovascular: Rate: tachycardic, Rhythm: regular, Edema: is not appreciated, JVD: is not appreciated. 09:45 Respiratory: the patient does not display signs of respiratory distress, Respirations: normal, no use of accessory muscles, no retractions, labored breathing, is not present, Breath sounds: are clear throughout, no decreased breath sounds, no stridor, no wheezing. 09:45 Abdomen/GI: Inspection: abdomen appears normal, Bowel sounds: active, all quadrants, Palpation: abdomen is soft and non-tender, in all quadrants, rebound tenderness, is not appreciated, involuntary guarding, is not appreciated. 09:45 Back: pain, that is mild, of the lumbar area, ROM is painful, with all movement. 09:45 Musculoskeletal/extremity: Exam is negative for decreased range of motion, deformity, injury. 09:45 Skin: cellulitis, is not appreciated, no rash present. 09:45 Neuro: Orientation: to person, place \T\ time. Mentation: is normal, Motor: moves all fours, general weakness with no focal deficits, Sensation: no obvious gross deficits. 10:20 ECG was reviewed by the Attending Physician. cp Vital Signs: 09:09 Pulse 101; Resp 18; Temp 97.6; Pulse Ox 98% on R/A; Weight 74.84 kg; Height 5 ft. 4 in. ph (162.56 cm); 09:09 BP 110 / 59; ph 11:00 BP 123 / 61; Pulse 91; Resp 18; Pulse Ox 98% on R/A; ph 12:00 BP 123 / 65; Pulse 96; Resp 18; Pulse Ox 99% on R/A; ph 13:13 BP 118 / 64; Pulse 88; Resp 16; Pulse Ox 98% on R/A; ph 14:30 BP 112 / 68; Pulse 82; Resp 18; Pulse Ox 99% on R/A; ph 16:00 BP 122 / 67; Pulse 84; Resp 18; Temp 98.0; Pulse Ox 99% on R/A; ph 09:09 Body Mass Index 28.32 (74.84 kg, 162.56 cm) ph MDM: 09:22 Patient medically screened. cp 09:30 Differential diagnosis: metabolic disorder, drug effects, dehydration, uti, sepsis, cp electrolyte abnormality. 15:55 Data reviewed: vital signs, nurses notes, lab test result(s), EKG, radiologic studies, cp CT scan. 15:55 Test interpretation: by ED physician or midlevel provider: ECG. Counseling: I had a cp detailed discussion with the patient and/or guardian regarding: the historical points, exam findings, and any diagnostic results supporting the discharge/admit diagnosis, lab results, radiology results, to return to the emergency department if symptoms worsen or persist or if there are any questions or concerns that arise at home. Response to treatment: the patient's symptoms have mildly improved after treatment. ED course: VSS. Discussed results of labs and radiology studies. Patient lives alone but has good support from family. Will discharge to home for continued monitoring. 01/21 09:24 Order name: Basic Metabolic Panel cp 01/21 09:24 Order name: CBC with Diff cp 01/21 09:24 Order name: LFT's cp 01/21 09:24 Order name: Magnesium cp 01/21 09:24 Order name: NT PRO-BNP cp 01/21 09:24 Order name: PT-INR cp 01/21 09:24 Order name: Troponin (emerg Dept Use Only) cp 01/21 09:24 Order name: Urine Microscopic Only cp 01/21 09:24 Order name: CK cp 01/21 10:10 Order name: CBC with Automated Diff; Complete Time: 11:33 EDMS 01/21 10:24 Interpretation: Normal except: RBC 3.73; HCT 35.5; MCV 95.2; RDW 16.0; RIANNA% 90.5; LYM% cp 5.1; MN% 3.2; NEUT A 9.1; LYMA 0.5. 01/21 10:11 Order name: Protime (+INR); Complete Time: 10:24 EDMS 01/21 10:35 Order name: Basic Metabolic Panel; Complete Time: 11:33 EDMS 01/21 11:33 Interpretation: Normal except: GFR 54. cp 01/21 10:35 Order name: Liver (Hepatic) Function; Complete Time: 11:33 EDMS 01/21 11:33 Interpretation: Normal except: AST 177; ALT 83; ALK 186; BILID 0.4; ALB 3.1; GLOB 3.8; cp A/G 0.8. 01/21 10:35 Order name: Creatine Phosphokinase; Complete Time: 11:33 EDMS 01/21 11:34 Interpretation: Abnormal: CPK 322. cp 01/21 09:24 Order name: XRAY Chest (1 view) cp 01/21 09:24 Order name: EKG; Complete Time: 09:25 cp 01/21 09:24 Order name: Cardiac monitoring; Complete Time: 10:14 cp 01/21 09:24 Order name: EKG - Nurse/Tech; Complete Time: 10:14 cp 01/21 09:24 Order name: IV Saline Lock; Complete Time: 09:55 cp 01/21 09:24 Order name: Labs collected and sent; Complete Time: 09:55 cp 01/21 10:35 Order name: Troponin (Emerg Dept Use Only); Complete Time: 11:33 EDMS 01/21 10:35 Order name: NT PRO-BNP; Complete Time: 11:33 EDMS 01/21 10:35 Order name: Magnesium; Complete Time: 11:33 EDMS 01/21 10:44 Order name: Manual Differential; Complete Time: 11:33 EDMS 01/21 10:45 Order name: RAD; Complete Time: 11:33 EDPA 01/21 11:36 Order name: CT Traumagram (Head C Spine CAP W Con) 01/21 12:58 Order name: CT; Complete Time: 14:41 EDMS 01/21 15:46 Order name: Urine Dipstick-Ancillary; Complete Time: 16:11 EDMS 01/21 16:12 Interpretation: Normal except: UBLD Trace-intact; UPROT 1+. 01/21 16:05 Order name: Urine Microscopic Only; Complete Time: 16:11 EDMS 01/21 16:12 Interpretation: Reviewed. 01/21 09:24 Order name: O2 Per Protocol; Complete Time: 09:36 cp 01/21 09:24 Order name: O2 Sat Monitoring; Complete Time: 09:36 cp EC:20 Rate is 94 beats/min. Rhythm is regular. [place] interval is normal. QRS interval is normal. cp QT interval is normal. T waves are Inverted in leads III, aVR. Interpreted by me. Reviewed by me. Administered Medications: 19:32 Not Given (Other Intervention Used): Zofran (Ondansetron) 4 mg IVP once; over 2 minutes ph Disposition: 16:00 Chart complete. cp 16:50 Co-signature as Attending Physician, Domenico Lloyd MD. rn Disposition: 01/21/21 15:56 Discharged to Home. Impression: Fall from bed, Weakness. - Condition is Stable. - Discharge Instructions: Fall Prevention in the Home, Weakness. - Medication Reconciliation Form, Thank You Letter, Antibiotic Education, Prescription Opioid Use form. - Follow up: Private Physician; When: 1 - 2 days; Reason: Recheck today's complaints. - Problem is new. - Symptoms have improved. Signatures: Dispatcher [employer] EDPA Domenico Lloyd MD MD rn Hall, Patricia, RN RN ph Feliberto Guerra PA PA cp Corrections: (The following items were deleted from the chart) 11:33 11:33 Normal except: AST 177; ALT 83; ALK 186; BILID 0.4; ALB 3.1; GLOB 3.8. cp cp 16:49 15:56 01/21/2021 15:56 Discharged to Home. Impression: Fall from bed; Weakness. ph Condition is Stable. Forms are Medication Reconciliation Form, Thank You Letter, Antibiotic Education, Prescription Opioid Use. Follow up: Private Physician; When: 1 - 2 days; Reason: Recheck today's complaints. Problem is new. Symptoms have improved. cp
--- NOTE | 2021-01-21 15:56 | ER ---
Nurse's Notes [facility] Name: Natacha Dhillon Age: 80 yrs Sex: Female : 1940 Arrival Date: 01/21/2021 Time: 09:04 Bed 17 Private MD: Diagnosis: Fall from bed;Weakness Presentation: 01/21 09:09 Chief complaint: EMS states: Pt states that she was getting back in bed at around 1 ph this morning when she slid from the bed onto the floor, denies LOC or head injury, was unable to get up from the floor and was found there at approx 0800 by her son,c/o pain to R rib area, VSS. Coronavirus screen: Client denies travel out of the [place] in the last 14 days. At this time, the client does not indicate any symptoms associated with coronavirus-19. Ebola Screen: No symptoms or risks identified at this time. Initial Sepsis Screen:. Initial Sepsis Screen: Does the patient meet any 2 criteria? HR > 90 bpm. Does the patient have a suspected source of infection? No. Patient's initial sepsis screen is negative. Risk Assessment: Do you want to hurt yourself or someone else? Patient reports no desire to harm self or others. Onset of symptoms was January 21, 2021. 09:09 Method Of Arrival: EMS: [facility] ph 09:09 Acuity: LES 3 ph Triage Assessment: 09:14 General: Appears in no apparent distress. comfortable, Behavior is calm, cooperative, ph appropriate for age, Denies fever, feeling ill. Pain: Denies pain. Neuro: Level of Consciousness is awake, alert, obeys commands, Oriented to person, place, time, situation, Reports dizziness. Cardiovascular: Capillary refill < 3 seconds in bilateral fingers Patient's skin is warm and dry. Respiratory: Airway is patent Respiratory effort is even, unlabored. Derm: Skin is intact, is fragile, is thin, Skin is pink, warm \T\ dry. Musculoskeletal: Circulation, motion, and sensation intact. Range of motion: intact in all extremities. 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 - Social history:: Smoking status: Patient denies any tobacco usage or history of. Screenin:14 Abuse screen: Denies threats or abuse. Denies injuries from another. Nutritional ph screening: No deficits noted. Tuberculosis screening: No symptoms or risk factors identified. Fall Risk None identified. Assessment: 09:56 Reassessment: Patient appears in no apparent distress at this time. Patient and/or ph family updated on plan of care and expected duration. Pain level reassessed. Patient is alert, oriented x 3, equal unlabored respirations, skin warm/dry/pink. Son at bedside reports that pt recently started chemo for breast cancer stage 4, pt reports intermittent nausea and weakness, ERP notified and verbal order received for Zofran IVP. 12:05 Reassessment: Patient appears in no apparent distress at this time. Patient and/or ph family updated on plan of care and expected duration. Pain level reassessed. Patient is alert, oriented x 3, equal unlabored respirations, skin warm/dry/pink. Pt taken to CT. 13:12 Reassessment: Patient appears in no apparent distress at this time. Patient and/or ph family updated on plan of care and expected duration. Pain level reassessed. Pt resting comfortably at this time. Vital Signs: 09:09 Pulse 101; Resp 18; Temp 97.6; Pulse Ox 98% on R/A; Weight 74.84 kg; Height 5 ft. 4 in. ph (162.56 cm); 09:09 BP 110 / 59; ph 11:00 BP 123 / 61; Pulse 91; Resp 18; Pulse Ox 98% on R/A; ph 12:00 BP 123 / 65; Pulse 96; Resp 18; Pulse Ox 99% on R/A; ph 13:13 BP 118 / 64; Pulse 88; Resp 16; Pulse Ox 98% on R/A; ph 14:30 BP 112 / 68; Pulse 82; Resp 18; Pulse Ox 99% on R/A; ph 16:00 BP 122 / 67; Pulse 84; Resp 18; Temp 98.0; Pulse Ox 99% on R/A; ph 09:09 Body Mass Index 28.32 (74.84 kg, 162.56 cm) ph ED Course: 09:04 Patient arrived in ED. ds1 09:09 Judith Frazier, RN is Primary Nurse. ph 09:13 Triage completed. ph 09:14 Arm band placed on Patient placed in an exam room, on a stretcher, on pulse oximetry. ph 09:14 Patient has correct armband on for positive identification. Bed in low position. Call ph light in reach. Side rails up X2. Pulse ox on. NIBP on. Door closed. Noise minimized. 09:15 Feliberto Guerra PA is PHCP. cp 09:15 Domenico Lloyd MD is Attending Physician. cp 09:55 Initial lab(s) drawn, by me, sent to lab. Inserted saline lock: 22 gauge in right ph antecubital area, using aseptic technique. Blood collected. 16:49 No provider procedures requiring assistance completed. IV discontinued, intact, ph bleeding controlled, No redness/swelling at site. Pressure dressing applied. Administered Medications: 19:32 Not Given (Other Intervention Used): Zofran (Ondansetron) 4 mg IVP once; over 2 minutes ph Outcome: 15:56 Discharge ordered by MD. cp 16:49 Patient left the ED. ph 16:49 Discharged to home via wheelchair, with family. ph 16:49 Condition: good 16:49 Discharge instructions given to patient, family, Instructed on discharge instructions, follow up and referral plans. Demonstrated understanding of instructions, follow-up care. Signatures: Lala Hernandez ds1 Judith Frazier RN RN ph Feliberto Guerra PA PA cp
[2021-01-21 16:05] LABS: Urine Bacteria <20 /HPF (<20); Urine RBC <5 /HPF (NONE SEEN)
[2021-01-21 16:55] VITALS: TEMP 97.6
[2021-01-21 17:00] VITALS: BP 118/64; O2SAT 98
--- NOTE | 2021-01-22 10:35 | EKG ---
Test Date: 2021-01-21 Test Time: 10:11:57 [employer]: [facility] MEASUREMENT RESULTS: Intervals: Rate: 94 NM: 148 QRSD: 78 QT: 370 QTc: 462 [place]: P: -5 NM: 148 QRS: -8 T: -18 INTERPRETIVE STATEMENTS: Normal sinus rhythm Left ventricular hypertrophy with repolarization abnormality Inferior infarct, age undetermined Anterior infarct, age undetermined Abnormal ECG Compared to ECG 09/30/2016 16:10:36 Left ventricular hypertrophy now present Early repolarization now present First degree AV block no longer present Myocardial infarct finding still present Electronically Signed On 01-22-21 10:32:04 CDT by Ian Javed
== END 2021-01-21 16:49 | disposition home or self-care (01) ==
LOC: ER 09:03
DX: R53.1 Weakness (principal); W06.XXXA Fall from bed, initial encounter; Z95.818 Presence of other cardiac implants and grafts; Z88.0 Allergy status to penicillin; Z88.3 Allergy status to other anti-infective agents; Z88.5 Allergy status to narcotic agent; I10 Essential (primary) hypertension
CPT/HCPCS: 85025; 80048; 36415; 83735; 82550; 85610; 80076; 84484; 83880; 70450; 72125; 71260; 74177; 71045; Q9967; J2405; 81003; 81015; 93005; 99284